=== PATIENT | female | born 1955 | race African-American/Black ===

== ENCOUNTER 2024-02-19 22:10 | Emergency (ER) | payer OTHER ==
[~2024-02-19] VITALS: Ht 160 cm; Wt 59.0 kg
[2024-02-19 22:12] VITALS: O2SAT 98
[2024-02-19] MEDS: ACETAMINOPHEN 325MG TABLET PO NR (23:30)
[2024-02-20 01:00] VITALS: BP 157/83; PULSE 75; RESP 16; TEMP 36.83628; O2SAT 100
== END 2024-02-20 01:00 | disposition home or self-care (01) ==
LOC: ER 22:10
DX: S20.211A Contusion of right front wall of thorax, initial encounter (principal); I10 Essential (primary) hypertension; M25.561 Pain in right knee; M25.562 Pain in left knee; M25.511 Pain in right shoulder; V49.49XA Driver injured in collision with other motor vehicles in traffic accident, initial encounter; Y93.89 Activity, other specified; Y92.89 Other specified places as the place of occurrence of the external cause; Y99.8 Other external cause status
CPT/HCPCS: 71045; 73030; 73560; 73562; 99284